=== PATIENT | male | born 1990 | race Caucasian/White ===

== ENCOUNTER 2018-09-06 18:39 | Emergency (ER) | payer OTHER ==
[2018-09-06] MEDS ORDERED: HYDROmorphone 1 MG/ML Syringe IVPUSH ONE (19:17)
[2018-09-06] MEDS ORDERED: Sodium Chloride 0.9% 1,000 ML IV ONE (19:17)
[2018-09-06] MEDS ORDERED: Ondansetron 4 MG/2 ML SDV IVPUSH ONE (19:17)
[2018-09-06] MEDS ORDERED: Ketorolac 30 MG/ML SDV IVPUSH ONE (19:17)
[2018-09-06] MEDS ORDERED: Sodium Chloride 0.9% 10 ML Syringe FLUSH PRN (19:17)
[2018-09-06] MEDS ORDERED: Sodium Chloride 0.9% 2.5 ML Syringe FLUSH PRN (19:17)
--- NOTE | 2018-09-06 19:21 | EDM.PDOC ---
ED HPI GENERAL MEDICAL PROBLEM - General Chief Complaint: Abdominal Pain Stated Complaint: ABDOMENAL PAIN Time Seen by Provider: 09/06/18 19:06 - History of Present Illness INITIAL COMMENTS - FREE TEXT/NARRATIVE: HISTORY AND PHYSICAL: History of present illness: The patient is a 27-year-old male with no significant GI or abdominal surgical history who presents with diffuse abdominal pain that radiates to his mid back that started yesterday after having some dental work. Patient said he did not have a dental infection but had work on a crown and had nitrous oxide and after the dental procedure he went home and started having some vague abdominal pain. He thought it was related to the procedure and it seemed to intensify but then went away and he was able to sleep last night. He had no fever chills nausea or vomiting with that episode. This morning when he woke he felt better and tried to go to work but did not feel quite like himself and still felt some discomfort and as the day progressed it seemed to get worse. He says it is not localizing right or left high or low but it is diffuse and he feels very bloated and feels like he has a lot of gas. He says the pain radiates to his mid back but he is not having any urinary issues. He felt nauseated and tried to make himself vomit at home but he has had no spontaneous vomiting. He says he has had bowel movements but they are small amounts. The patient has been on a keto diet since July but is not surly been completely compliant with it. He has taken [id number] ibuprofen and Aleve for this discomfort with some relief and is here for evaluation. Is no history of food intolerance no history of episodes of heartburn or acid reflux and no history of excessive gas. Patient says he feels most comfortable pulling his legs up and laying on his side. Review of systems: As per history of present illness and below otherwise all systems reviewed and negative. Past medical history: As per history of present illness and as reviewed below otherwise noncontributory. Surgical history: As per history of present illness and as reviewed below otherwise noncontributory. Social history: No reported history of drug or alcohol abuse. Family history: As per history of present illness and as reviewed below otherwise noncontributory. Physical exam: General: Well-developed well-nourished man who is mildly overweight nontoxic and cooperative. He moves easily in the ED without distress but when he is just sitting on the bed he looks uncomfortable. Vital signs are noted by me HEENT: Atraumatic, normocephalic, negative for conjunctival pallor or scleral icterus, mucous membranes moist, throat clear, neck supple, nontender, trachea midline. Lungs: Clear to auscultation, breath sounds equal bilaterally, chest nontender. Heart: S1S2, regular rate and rhythm no overt murmurs Abdomen: Soft, slightly distended with tympany on percussion in the upper abdomen, there is diffuse moderate abdominal tenderness without localization high or low right or left and there is no rebound or guarding,. Negative for masses or hepatosplenomegaly. Negative for costovertebral tenderness. Pelvis: Stable nontender. Genitourinary: Deferred. Rectal: Deferred. Extremities: Atraumatic, negative for cords or calf pain. Neurovascular unremarkable. Neuro: Awake, alert, oriented. Cranial nerves II through XII unremarkable. Cerebellum unremarkable. Motor and sensory unremarkable throughout. Exam nonfocal. Back: There are no midline step-offs tenderness defects of the thoracic or lumbar spine no discrete CVA tenderness or appreciable tenderness on palpation of the soft tissues Diagnostics: CBC CMP amylase lipase H. pylori UA with reflex culture CT scan of the abdomen and pelvis Therapeutics: IV fluids Zofran Toradol Dilaudid Impression: Abdominal/intestinal colic pain improved Definitive disposition and diagnosis as appropriate pending reevaluation and review of above. Abdomen Pain Score (Numeric/FACES): 7 - Related Data Allergies Allergy/AdvReac Type Severity Reaction Status Date / Time No Known Allergies Allergy Verified 09/06/18 19:10 Home Meds: Home Meds . [No Known Home Meds] 09/06/18 [History] ED ROS GENERAL - Review of Systems Review Of Systems: ROS reveals no pertinent complaints other than HPI. ED EXAM, GENERAL - Physical Exam Exam: See Below (See dictation) Course - Vital Signs Last Recorded V/S: Last Vital Signs Temp 36.4 C 09/06/18 19:07 Pulse 57 L 09/06/18 19:07 Resp 20 09/06/18 19:07 BP 148/70 H 09/06/18 19:07 Pulse Ox 98 09/06/18 19:07 - Orders/Labs/Meds Orders: Active Orders 24 hr Category Date Time Status Sodium Chloride 0.9% [Saline Flush] Med 09/06/18 19:17 Active 10 ml FLUSH ASDIRECTED PRN Sodium Chloride 0.9% [Saline Flush] Med 09/06/18 19:17 Active 2.5 ml FLUSH ASDIRECTED PRN Saline Lock Insert [OM.PC] Stat Oth 09/06/18 19:16 Ordered Medication Orders Sodium Chloride (Saline Flush) 10 ml FLUSH ASDIRECTED PRN PRN Reason: Keep Vein Open Sodium Chloride (Saline Flush) 2.5 ml FLUSH ASDIRECTED PRN PRN Reason: Keep Vein Open Labs: Laboratory Tests 09/06/18 09/06/18 09/06/18 Range/Units 19:16 19:25 19:25 WBC 11.38 H (4.0-11.0) K/uL RBC 5.44 (4.50-5.90) M/uL Hgb 16.0 (13.0-17.0) g/dL Hct 46.7 (38.0-50.0) % MCV 85.8 (80.0-98.0) fL MCH 29.4 (27.0-32.0) pg MCHC 34.3 (31.0-37.0) g/dL RDW Std Deviation 40.2 (28.0-62.0) fl RDW Coeff of Lilly 13 (11.0-15.0) % Plt Count 233 (150-400) K/uL MPV 10.20 (7.40-12.00) fL Neut % (Auto) 62.8 (48.0-80.0) % Lymph % (Auto) 26.0 (16.0-40.0) % [place] % (Auto) 9.4 (0.0-15.0) % Eos % (Auto) 1.5 (0.0-7.0) % Baso % (Auto) 0.3 (0.0-1.5) % Neut # (Auto) 7.2 H (1.4-5.7) K/uL Lymph # (Auto) 3.0 H (0.6-2.4) K/uL [place] # (Auto) 1.1 H (0.0-0.8) K/uL Eos # (Auto) 0.2 (0.0-0.7) K/uL Baso # (Auto) 0.0 (0.0-0.1) K/uL Nucleated RBC % 0.0 /100WBC Nucleated RBCs # 0 K/uL Sodium 138 (136-148) mmol/L Potassium 3.8 (3.5-5.1) mmol/L Chloride 104 (98-107) mmol/L Carbon Dioxide 26.0 (21.0-32.0) mmol/L BUN 10 (7.0-18.0) mg/dL Creatinine 1.2 (0.8-1.3) mg/dL Est Cr Clr Drug Dosing 118.59 mL/min Estimated GFR (MDRD) > 60.0 ml/min Glucose 96 (74-106) mg/dL Calcium 9.0 (8.5-10.1) mg/dL Total Bilirubin 0.3 (0.2-1.0) mg/dL AST 24 (15-37) IU/L ALT 48 (14-63) IU/L Alkaline Phosphatase 90 (46-116) U/L Total Protein 7.8 (6.4-8.2) g/dL Albumin 4.2 (3.4-5.0) g/dL Globulin 3.6 (2.6-4.0) g/dL Albumin/Globulin Ratio 1.2 (0.9-1.6) Amylase 23 L (25-115) U/L Lipase 90 (73-393) U/L Urine Color YELLOW Urine Appearance CLEAR Urine pH 6.0 (5.0-8.0) Ur Specific [place] <= 1.005 (1.001-1.035) Urine Protein NEGATIVE (NEGATIVE) mg/dL Urine Glucose (UA) NEGATIVE (NEGATIVE) mg/dL Urine Ketones NEGATIVE (NEGATIVE) mg/dL Urine Occult Blood NEGATIVE (NEGATIVE) Urine Nitrite NEGATIVE (NEGATIVE) Urine Bilirubin NEGATIVE (NEGATIVE) Urine Urobilinogen 0.2 (<2.0) EU/dL Ur Leukocyte Esterase NEGATIVE (NEGATIVE) H. pylori IgG Antibody (NEG) 09/06/18 Range/Units 19:25 WBC (4.0-11.0) K/uL RBC (4.50-5.90) M/uL Hgb (13.0-17.0) g/dL Hct (38.0-50.0) % MCV (80.0-98.0) fL MCH (27.0-32.0) pg MCHC (31.0-37.0) g/dL RDW Std Deviation (28.0-62.0) fl RDW Coeff of Lilly (11.0-15.0) % Plt Count (150-400) K/uL MPV (7.40-12.00) fL Neut % (Auto) (48.0-80.0) % Lymph % (Auto) (16.0-40.0) % [place] % (Auto) (0.0-15.0) % Eos % (Auto) (0.0-7.0) % Baso % (Auto) (0.0-1.5) % Neut # (Auto) (1.4-5.7) K/uL Lymph # (Auto) (0.6-2.4) K/uL [place] # (Auto) (0.0-0.8) K/uL Eos # (Auto) (0.0-0.7) K/uL Baso # (Auto) (0.0-0.1) K/uL Nucleated RBC % /100WBC Nucleated RBCs # K/uL Sodium (136-148) mmol/L Potassium (3.5-5.1) mmol/L Chloride (98-107) mmol/L Carbon Dioxide (21.0-32.0) mmol/L BUN (7.0-18.0) mg/dL Creatinine (0.8-1.3) mg/dL Est Cr Clr Drug Dosing mL/min Estimated GFR (MDRD) ml/min Glucose (74-106) mg/dL Calcium (8.5-10.1) mg/dL Total Bilirubin (0.2-1.0) mg/dL AST (15-37) IU/L ALT (14-63) IU/L Alkaline Phosphatase (46-116) U/L Total Protein (6.4-8.2) g/dL Albumin (3.4-5.0) g/dL Globulin (2.6-4.0) g/dL Albumin/Globulin Ratio (0.9-1.6) Amylase (25-115) U/L Lipase (73-393) U/L Urine Color Urine Appearance Urine pH (5.0-8.0) Ur Specific [place] (1.001-1.035) Urine Protein (NEGATIVE) mg/dL Urine Glucose (UA) (NEGATIVE) mg/dL Urine Ketones (NEGATIVE) mg/dL Urine Occult Blood (NEGATIVE) Urine Nitrite (NEGATIVE) Urine Bilirubin (NEGATIVE) Urine Urobilinogen (<2.0) EU/dL Ur Leukocyte Esterase (NEGATIVE) H. pylori IgG Antibody NEGATIVE (NEG) Meds: Medications Generic Name Dose Route Start Last Admin Trade Name Freq PRN Reason Stop Dose Admin Sodium Chloride 10 ml 09/06/18 19:17 Saline Flush FLUSH ASDIRECTED PRN Keep Vein Open Sodium Chloride 2.5 ml 09/06/18 19:17 Saline Flush FLUSH ASDIRECTED PRN Keep Vein Open Discontinued Medications Generic Name Dose Route Start Last Admin Trade Name Freq PRN Reason Stop Dose Admin Hydromorphone HCl 1 mg 09/06/18 19:17 09/06/18 19:37 Dilaudid IVPUSH 09/06/18 19:18 1 mg ONETIME ONE Administration Sodium Chloride 1,000 mls @ 999 mls/hr 09/06/18 19:17 09/06/18 19:32 Normal Saline IV 09/06/18 20:17 999 mls/hr STAT ONE Administration Iopamidol 100 ml 09/06/18 20:37 09/06/18 20:38 Isovue-370 (76%) IVPUSH 09/06/18 20:38 100 ml ONETIME ONE Administration Ketorolac Tromethamine 30 mg 09/06/18 19:17 09/06/18 19:36 Toradol IVPUSH 09/06/18 19:18 30 mg ONETIME ONE Administration Ondansetron HCl 4 mg 09/06/18 19:17 09/06/18 19:35 Zofran IVPUSH 09/06/18 19:18 4 mg ONETIME ONE Administration Departure - Departure Time of Disposition: 20:58 Disposition: Home, Self-Care 01 Condition: Good Clinical Impression: Abdominal pain Qualifiers: Abdominal location: generalized Qualified Code(s): R10.84 - Generalized abdominal pain - Discharge Information Referrals: Oleksandr Vora MD [Primary Care Provider] - Forms: ED Department Discharge Additional Instructions: The following information is given to patients seen in the emergency department who are being discharged to home. This information is to outline your options for follow-up care. We provide all patients seen in our emergency department with a follow-up referral. The need for follow-up, as well as the timing and circumstances, are variable depending upon the specifics of your emergency department visit. If you don't have a primary care physician on staff, we will provide you with a referral. We always advise you to contact your personal physician following an emergency department visit to inform them of the circumstance of the visit and for follow-up with them and/or the need for any referrals to a consulting specialist. The emergency department will also refer you to a specialist when appropriate. This referral assures that you have the opportunity for followup care with a specialist. All of these measure are taken in an effort to provide you with optimal care, which includes your followup. Under all circumstances we always encourage you to contact your private physician who remains a resource for coordinating your care. When calling for followup care, please make the office aware that this follow-up is from your recent emergency room visit. If for any reason you are refused follow-up, please contact the [facility] emergency department at and ask to speak to the emergency department charge nurse [facility] Primary care- Internal [place] [address] Please push hydration and avoid caffeinated products and take a look at your diet and investigate if there is any causes for today's events as a result of what you are eating and drinking. Use the Bentyl you have been prescribed as needed. Bentyl helps with bowel spasm and cramping but also use an over-the- counter gas prep to help evacuate the gas you're feeling in her upper abdomen. Return to ER as needed and as discussed and schedule a follow-up appointment with your provider or one of ours in the clinic for further care and evaluation of this problem. - My Orders Last 24 Hours: My Active Orders 09/06/18 19:16 Saline Lock Insert [OM.PC] Stat 09/06/18 19:17 Sodium Chloride 0.9% [Saline Flush] 10 ml FLUSH ASDIRECTED PRN Sodium Chloride 0.9% [Saline Flush] 2.5 ml FLUSH ASDIRECTED PRN - Assessment/Plan Last 24 Hours: My Active Orders 09/06/18 19:16 Saline Lock Insert [OM.PC] Stat 09/06/18 19:17 Sodium Chloride 0.9% [Saline Flush] 10 ml FLUSH ASDIRECTED PRN Sodium Chloride 0.9% [Saline Flush] 2.5 ml FLUSH ASDIRECTED PRN
[2018-09-06 20:03] LABS: CHLORIDE,CL 104 mmol/L (98-107); SODIUM,NA 138 mmol/L (136-148)
[2018-09-06] MEDS ORDERED: Iopamidol 755 Mg/ML 100 ML Bottle IVPUSH ONE (20:37)
--- NOTE | 2018-09-06 20:51 | CT ---
INDICATION: Abdominal pain TECHNIQUE: CT abdomen and pelvis acquired with 100 cc Isovue 370 IV contrast. COMPARISON: None FINDINGS: Lower chest: Unremarkable. Liver: Unremarkable. Spleen: Unremarkable. Pancreas: Unremarkable. Gallbladder and bile ducts: Unremarkable. Adrenal glands: Unremarkable. Kidneys: Unremarkable. GI tract: Unremarkable. Appendix is normal. Vascular structures: Unremarkable. Lymph nodes: Unremarkable. Miscellaneous: Small fat containing umbilical hernia. No free air or significant free fluid. Pelvic Organs: Unremarkable. Bones: Unremarkable for age. IMPRESSION: Unremarkable CT of the abdomen and pelvis. Please note that all CT scans at this facility use dose modulation, iterative reconstruction, and/or weight-based dosing when appropriate to reduce radiation dose to as low as reasonably achievable. Dictated by Alisha Prescott MD @ Sep 06 2018 8:50PM Signed by Dr. Alisha Prescott @ Sep 06 2018 8:50PM
== END 2018-09-06 21:13 | disposition home or self-care (01) ==
LOC: MW.ED 18:39
DX: R10.84 Generalized abdominal pain (principal)
CPT/HCPCS: 74177; 80053; 81003; 82150; 83690; 85025; 86677; 96361; 96374; 96375; 99284; J1170; J1885; J2405; J7040; Q9967

== ENCOUNTER 2021-01-19 17:08 | Emergency (ER) | payer SELFPAY ==
--- NOTE | 2021-01-19 17:50 | CR ---
Indication: Shoulder injury Technique: Two views of the right shoulder Finding : Normal articulation at the glenohumeral joint. No acute fracture or dislocation. AC joint unremarkable. Dictated by Renea Mendoza MD @ 01/19/2021 5:48:[address] Renea Mendoza @ Jan 19 2021 5:48PM
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
--- NOTE | 2021-01-19 19:03 | CR ---
Indication: Right shoulder pain Technique: Single axillary view of the shoulder Finding : Normal articulation. No fractures or dislocation visualized. Dictated by Renea Mendoza MD @ 01/19/2021 7:02:[address] Renea Mendoza @ Jan 19 2021 7:02PM
== END 2021-01-19 19:10 | disposition home or self-care (01) ==
LOC: MW.ED 17:08
DX: S43.015A Anterior dislocation of left humerus, initial encounter (principal); V86.46XA Person injured while boarding or alighting from a dirt bike or motor/cross bike, initial encounter
CPT/HCPCS: 73030-26-RT; 73030-RT; 99283; 99284-25

== ENCOUNTER 2023-03-19 22:41 | Emergency (ER) | payer BC ==
[2023-03-19] MEDS ORDERED: Sodium Chloride 0.9% 2.5 ML Syringe FLUSH PRN (22:44)
[2023-03-19] MEDS ORDERED: Sodium Chloride 0.9% 10 ML Syringe FLUSH PRN (22:44)
[2023-03-19] MEDS ORDERED: Morphine 4 MG/ML Syringe IVPUSH STA (22:48)
[2023-03-19] MEDS ORDERED: Ondansetron 4 MG/2 ML SDV IVPUSH STA (22:48)
[2023-03-19] MEDS ORDERED: Ondansetron 4 MG/2 ML SDV ONE (22:49)
[2023-03-19] MEDS ORDERED: Morphine 4 MG/ML Syringe ONE (22:49)
[2023-03-19 23:00] LABS: BASOPHILS PERCENT AUTO 0.4 % (0.0-1.5); EOSINOPHILS ABSOLUTE AUTO 0.3 K/uL (0.0-0.7); EOSINOPHILS PERCENT AUTO 3.1 % (0.0-7.0); HEMATOCRIT 45.6 % (38.0-50.0); HEMOGLOBIN 15.9 g/dL (13.0-17.0); LYMPHOCYTES ABSOLUTE AUTO 3.4 K/uL (0.6-2.4); LYMPHOCYTES PERCENT AUTO 34.6 % (16.0-40.0); MEAN CORPUSCULAR HEMOGLOBIN 29.9 pg (27.0-32.0); MEAN CORPUSCULAR HGB CONC 34.9 g/dL (31.0-37.0); MEAN CORPUSCULAR VOLUME 85.7 fL (80.0-98.0); MONOCYTES ABSOLUTE AUTO 0.8 K/uL (0.0-0.8); MONOCYTES PERCENT AUTO 8.5 % (0.0-15.0); NEUTROPHILS ABSOLUTE AUTO 5.3 K/uL (1.4-5.7); NEUTROPHILS PERCENT AUTO 53.4 % (48.0-80.0); NRBC ABSOLUTE 0 K/uL; PLATELET COUNT,PLT 278 K/uL (150-400); RED BLOOD CELL COUNT 5.32 M/uL (4.50-5.90); WHITE BLOOD CELL COUNT,WBC 9.92 K/uL (4.0-11.0)
[2023-03-19] MEDS ORDERED: Iopamidol 755 MG/ML 500 ML Multipack Bottle IVPUSH ONE (23:00)
[2023-03-19 23:15] LABS: INR 0.99 (0.86-1.11)
[2023-03-20 00:22] LABS: A/G RATIO 1.1 (0.9-1.6); ALBUMIN 3.9 g/dL (3.4-5.0); BILIRUBIN TOTAL 0.5 mg/dL (0.2-1.0); CALCIUM 8.6 mg/dL (8.5-10.1); CREATININE 1.3 mg/dL (0.8-1.3); EST CRCL DRUG DOSING (CG) 104.71 mL/min; POTASSIUM,K 4.1 mmol/L (3.5-5.1); PROTEIN TOTAL,TP 7.3 g/dL (6.4-8.2)
== END 2023-03-20 00:45 | disposition home or self-care (01) ==
LOC: MW.ED 22:41
DX: S29.011A Strain of muscle and tendon of front wall of thorax, initial encounter (principal); V86.99XA Unspecified occupant of other special all-terrain or other off-road motor vehicle injured in nontraffic accident, initial encounter
CPT/HCPCS: 36415; 70450; 71045; 71260; 72125; 74177; 80053; 83690; 84484; 85025; 85610; 86850; 86900; 86901; 93005; 96374; 96375; 99285; J2270; J2405; J3490; Q9967; 93010; 99284